=== PATIENT | male | born 1965 | race Caucasian/White ===

== ENCOUNTER → 2018-10-06 | Outpatient (CLI) | payer BC ==
--- NOTE | 2018-10-06 13:53 | RAD ---
EXAM: AP and lateral views of the left elbow DATE: 10/06/2018 12:00 AM INDICATION: Left elbow pain, history of left total infection COMPARISON: No Prior FINDINGS: Soft tissue swelling is seen overlying the olecranon, olecranon bursitis. Osseous deformity of the olecranon is chronic in appearance likely from history of infection. No definite acute erosive/destructive change or periostitis to suggest acute osteomyelitis. No evidence of acute fracture or dislocation. No left elbow joint effusion. IMPRESSION: 1. Bony changes of the olecranon likely chronic changes from prior infection. No definite acute erosive/destructive change or periostitis to suggest acute osteomyelitis. However MRI is more sensitive 2. Soft tissue swelling overlying the olecranon, likely olecranon bursitis. Electronically signed by: Lion Corado MD (10/06/2018 1:50 PM) [id number]
== END | disposition home or self-care (01) ==
LOC: RAD 11:39
PROVIDERS: ATTEND Orthopaedic Surgery
DX: M79.89 Other specified soft tissue disorders (principal); M25.522 Pain in left elbow
CPT/HCPCS: 73070

== ENCOUNTER → 2019-01-10 | Outpatient (CLI) | payer BC ==
--- NOTE | 2019-01-10 15:47 | RAD ---
Bilateral lower extremity arterial ultrasound History: Leg cramps, pain bilaterally Findings: Multiple grayscale, color, and duplex spectral analysis sonographic images were acquired of the lower extremity arteries bilaterally. There are triphasic waveforms throughout the left lower extremity arteries. There are mostly triphasic waveforms on the right other than biphasic waveforms of the profunda femoris, peroneal, and dorsalis pedis arteries. No significant stenosis is demonstrated on grayscale or color images. There is some scattered plaque bilaterally. Velocities in cm/sec: RIGHT Common femoral artery 148 Profunda femoris artery 48 Proximal SFA 95 Mid SFA 85 Distal SFA 105 Popliteal artery 60 Posterior tibial artery 74 proximally and 71 distally Peroneal artery 34 Anterior tibial artery 43 Dorsalis pedis artery 28 LEFT: Common femoral artery 122 Profunda femoris artery 44 Proximal SFA 107 Mid SFA 112 Distal SFA 102 Popliteal artery 83 Posterior tibial artery 46 proximally and 65 distally Peroneal artery 55 Anterior tibial artery 41 Dorsalis pedis artery 42 Impression: 1. No significant focal stenosis or vessel occlusion is demonstrated. Ankle brachial indices: Right MARTY was 1.08, left 1.09. IMPRESSION: 1. Ankle-brachial indices are within normal limits. Electronically signed by: Diego Rajan MD (01/10/2019 3:44 PM) [id number]
== END | disposition home or self-care (01) ==
LOC: US 09:40
PROVIDERS: ATTEND Family Medicine
DX: I70.293 Other atherosclerosis of native arteries of extremities, bilateral legs (principal)
CPT/HCPCS: 93922